=== PATIENT | female | born 1955 | race Caucasian/White ===

== ENCOUNTER 2022-01-07 06:25 | Day surgery (SDC) | payer MEDICARE, OTHER ==
[~2022-01-07] VITALS: Ht 175.3 cm; Wt 91.2 kg
[2022-01-07] MEDS ORDERED: COQ1050 MG PO (06:52)
[2022-01-07] MEDS ORDERED: GLUC500 PO (06:53)
== END 2022-01-07 08:20 | disposition home or self-care (01) ==
LOC: ORSCSDS 06:25
PROVIDERS: Podiatrist Foot & Ankle Surgery
PROC: 0SNQ0ZZ Release Left Toe Phalangeal Joint, Open Approach (ICD-10-PCS; principal; 2022-01-07 07:30)
DX: M20.42 Other hammer toe(s) (acquired), left foot (principal); M79.672 Pain in left foot
CPT/HCPCS: J0171; J0690; J1100; J2001; J2250; J2704; J3010

== ENCOUNTER 2025-06-16 11:04 | Day surgery (SDC) | payer MEDICARE, OTHER ==
[2025-06-16] VITALS (22 sets, daily range): BP systolic 111–170; BP diastolic 63–88
[~2025-06-16 11:04] MED LIST: COQ1050 MG PO; GLUC500 PO
--- NOTE | 2025-06-16 11:58 | NUR ---
Ambulatory in Day Surgery. Lungs clear T/O to Auscultation. History, Chart, Medications and Allergies reviewed before start of procedure. Patient states colon prep results clear. Patient States Post-Procedure ride home has been arranged. Patient confirms NPO status and agrees with scheduled surgery. Pt states that she had two sips of Oma Michelle at approx 0900 this morning D/T alysona, provider informed.
[2025-06-16] MEDS ORDERED: Ondansetron HCl 2 MG / ML 2ML Vial ONE (12:28)
--- NOTE | 2025-06-16 12:46 | NUR ---
06/16/25 1246 Larissa Rodriguez CONFIRMED AND REVIEWED H&P, MEDCICATIONS, ALLERGIES, MEDICAL HISTORY, RESPIRATORY HISTORY, VITAL SIGNS, 3-LEAD EKG, CONSENTS, AND PHYSICIAN ORDERS. PATIENT CONFIRMS NPO STATUS AND AGREES WITH SCHEDULED PROCEDURE. MONITOR INTACT WITH CONTINUOUS PULSE OXIMETRY, CAPNOGRAPHY, 3-LEAD EKG, INTERMITTENT BP. SUPPLEMENTAL O2 TO BE TITRATED THROUGHOUT PROCEDURE TO MAINTAIN O2 SATURATION ABOVE 90%. PATIENT DETERMINED TO BE ASA APPROPRIATE FOR PROPOFOL SEDATION PRIOR TO START OF PROCEDURE BY . MALLAMPATI CLASS 1 AIRWAY: COMPLETE VISULATIZATION OF THE SOFT PALATE.
--- NOTE | 2025-06-16 13:46 | NUR ---
PT TOLERATING PO INTAKE Patient up to Ambulate independently. Gait steady. Discharge instructions reviewed with patient. Patient verbalizes understanding. Copy given to patient to take home. Discharged via wheelchair to private car for ride home.
== END 2025-06-16 13:46 | disposition home or self-care (01) ==
LOC: ORSCMMR 11:04 → ORD 12:30 → ORSCMMR 12:30
PROVIDERS: Family Medicine
PROC: 0DJD8ZZ Inspection of Lower Intestinal Tract, Via Natural or Artificial Opening Endoscopic (ICD-10-PCS; principal; 2025-06-16 12:30)
DX: Z12.11 Encounter for screening for malignant neoplasm of colon (principal); K64.0 First degree hemorrhoids; Z86.0101 Personal history of adenomatous and serrated colon polyps; K59.09 Other constipation
CPT/HCPCS: 82947; J2405; J2704; J7120